=== PATIENT | male | born 1955 | race Caucasian/White ===

== ENCOUNTER 2024-05-01 12:09 | Emergency (ER) | payer MEDICARE, SELFPAY ==
[2024-05-01 12:34] VITALS: BP 188/110
--- NOTE | 2024-05-01 12:35 | ED.GENMED ---
ED Provider Triage
<Link Villagomez PA-C - Last Filed: 05/01/24 12:37>
-
Patient seen by provider in Triage?: Seen in Triage
Attestation: A medical screening examination has been initiated by a qualified medical provider. Based on the assessment performed at this time, it has been determined that an emergent medical condition may exist and the patient has been informed
that further medical evaluation and possible additional diagnostic testing may be needed.
HPI: 68-year-old male presenting to the emergency department for evaluation of right-sided lower back pain ongoing for about 3 to 4 weeks. Patient does note that he did have a mild fall at the beginning of these symptoms but is not sure if symptoms
are more mechanical. Does note that he has been urinating a little bit more frequently at night as well. No fevers or infectious symptoms. Patient is otherwise stable. Urinalysis and x-ray ordered.
GENERAL: Alert , in no apparent distress
EYE: No visual abnormalities.
NECK: Trachea midline
ENT: No visible abnormalities.
LUNGS: No acute respiratory distress
NEUROLOGICAL: Alert and oriented
SKIN: Skin intact. No visible changes.
MUSCULOSKELETAL: Moving extremities normally
PSYCH: Normal and appropriate interaction.
This is a medical evaluation conducted in person to initiate diagnostic evaluation and provide initial therapeutics. Please see further documentation by the treating clinician.
History of Present Illness
<Link Villagomez PA-C - Last Filed: 05/01/24 12:37>
General
Chief Complaint: Back Pain
Time Seen by Provider: 05/01/24 15:07
<Negro Smith MD - Last Filed: 05/01/24 15:43>
History of Present Illness
History of Present Illness:
Patient is a 68 old male with history of hypertension, prior history of lumbar stenosis status post surgical repair presenting to the emergency department for right lower back pain. Patient states that about 3 weeks ago he did have a mechanical
fall. He landed on the right side of his hip. A few days later he noticed that he had right lower back pain. It is constant dull pain that is worse with movement. He states that it is localized to the back. Does not radiate to his groin. No
new numbness tingling. No weakness. No fevers or chills. No history of spinal injections IV drug use, malignancy. No weight loss or night sweats. No saddle anesthesia, problems with urination or bowels. He does take Advil and naproxen which
does resolve the pain. He did speak to his primary care doctor over the phone today who recommended to come to the emergency department for further evaluation.
Past History
<Link Villagomez PA-C - Last Filed: 05/01/24 12:37>
Past History
ED Past Surgical History: Orthopedic (L. spine surgery)
Social History
Tobacco: Non-smoker
Personal: Single
Employment: Employed (judicial law clerk)
Phy Exam
<Negro Smith MD - Last Filed: 05/01/24 15:43>
Physical Exam
Physical Exam:
GENERAL: no acute distress
HEENT: atraumatic, extraocular muscles intact, no signs of entrapment, dentition intact, no other obvious trauma
NECK: no midline tenderness, normal range of motion, NEXUS criteria negative, no other obvious trauma
BACK: no midline tenderness, no other obvious trauma
CHEST: no tenderness, no flail segment, no subcutaneous emphysema, no other obvious trauma
LUNGS: clear to auscultation bilaterally
CARDIOVASCULAR: regular rate and rhythm
ABDOMEN: soft, non-tender, no masses, no other obvious trauma
PELVIS: stable, no obvious injury
EXTREMITIES: moving all extremities, distal pulses intact, no other obvious trauma
NEUROLOGIC: awake, alert x 3, no focal deficits
Course
<Link Villagomez PA-C - Last Filed: 05/01/24 12:37>
Orders/Labs/Results
Orders:
Orders
05/01/24 12:34
CR Lumbar Spine Comp Min 4 Vw* Urgent
Comment:
Reason For Exam: right sided lower back pain
05/01/24 12:56
Urinalysis Reflex To Culture Urgent
Date Specimen was Collected: 05/01/24
Time Specimen was Collected: 12:49
Vital Signs
Initial and Last Documented VS:
Initial Vital Signs
Temp Pulse Resp BP Pulse Ox
98.9 F 61 16 188/110 96
05/01/24 12:34 05/01/24 12:34 05/01/24 12:34 05/01/24 12:34 05/01/24 12:34
Last Documented Vital Signs
Temp Pulse Resp BP Pulse Ox
98.9 F 61 16 188/110 96
05/01/24 12:34 05/01/24 12:34 05/01/24 12:34 05/01/24 12:34 05/01/24 12:34
<Negro Smith MD - Last Filed: 05/01/24 15:43>
Orders/Labs/Results
Orders:
Orders
05/01/24 12:34
CR Lumbar Spine Comp Min 4 Vw* Urgent
Comment:
Reason For Exam: right sided lower back pain
05/01/24 12:56
Urinalysis Reflex To Culture Urgent
Date Specimen was Collected: 05/01/24
Time Specimen was Collected: 12:49
Vital Signs
Initial and Last Documented VS:
Initial Vital Signs
Temp Pulse Resp BP Pulse Ox
98.9 F 61 16 188/110 96
05/01/24 12:34 05/01/24 12:34 05/01/24 12:34 05/01/24 12:34 05/01/24 12:34
Last Documented Vital Signs
Temp Pulse Resp BP Pulse Ox
98.9 F 61 16 188/110 96
05/01/24 12:34 05/01/24 12:34 05/01/24 12:34 05/01/24 12:34 05/01/24 12:34
<Negro Smith MD - Last Filed: 05/01/24 15:43>
MDM/Problems Addressed
Differential Diagnosis Includes:
Patient is a 68-year-old male with history of hypertension, lumbar stenosis status postsurgical repair presenting to the emergency department right lower back pain in the setting of a recent fall. Vitals here are notable for an elevated blood
pressure and exam shows no midline tenderness with normal neuroexam. Does have very mild right lower tenderness superior to the hip. Most likely MSK pain. There are no red flags to suggest cauda equina osteomyelitis discitis or epidural abscess.
Given that there is no spinal tenderness less likely to be fracture. History and exam does not suggest aortic pathology or kidney stone or pancreatitis or appendicitis. He did have an x-ray completed prior to evaluation which showed no acute
abnormalities. Urine was negative. After shared decision making we did discuss the possibility of obtaining blood work and CT scan. However patient is following up with his PCP in a few days. We did discuss a better pain regimen. Will discharge
at this time with strict return precautions.
<Negro Smith MD - Last Filed: 05/01/24 15:43>
*Critical Care Note
Total Time (30-74mins, 75-104mins- exclusive of procedures): Not Applicable
ED Attending Note
<Link Villagomez PA-C - Last Filed: 05/01/24 12:37>
-
Portions of this chart may have been created with voice recognition software.� Occasional wrong word or��sound alike� substitutions may have occurred due to the inherent limitations of voice recognition software.
Discharge Plan
Departure
Patient Disposition: Home (Routine Discharge)
Date of Disposition: 05/01/24
Time of Disposition: 15:36
Patient with high blood pressure during this ER visit?: Yes
Discharge Problem:
Back pain
Instructions: Low Back Pain (DC)
Prescriptions:
No Action
hydrocodone-acetaminophen [Vicodin] 1 EACH tablet
1 ea PO Q6HPRN PRN (Reason: pain) Qty: 15 0RF
Referrals:
Srini Carter MD [Family Provider] -
Activity Restrictions/Additional Instructions:
We discussed pain medications:
You may take Tylenol (also known as Acetaminophen) for pain.
You may take 1000mg Acetaminophen (two extra-strength tablets) per dose, which should be taken every 6-8 hours, or three times a day.
If you have normal strength Tylenol, you can take 650mg (two normal strength tablets) every 4-6 hours.
Do not take more than 3,000mg (3 grams) of Acetaminophen per day.
Never take more than as directed on the bottle.
You may also take Ibuprofen (also known as Motrin or Advil). If taking with Tylenol, alternate and take between dosing.
You may take 400-800mg of Ibuprofen per dose, which should be taken every 6-8 hours.
Do not take more than 3200mg (3.2 grams) of Ibuprofen per day.
You may also benefit from using a Lidocaine Patch (also known as 'Salon Pas'), which is an over the counter pain patch.
Place it just over the site of pain, avoiding areas of skin damage, as per instructions on the patch.
Please see your primary care doctor soon to be reevaluated and to make sure that you are improving. We have included information about establishing care with a doctor if you do not have one.
We talked about your evaluation, diagnosis, and treatment in the Emergency Department today. You must see your primary doctor for recheck and followup care in order to evaluate your progress or any changes. Have your doctor recheck the test
results/information from the ED visit. As discussed, RETURN to the ED if you develop worsening/changing symptoms or have no improvement in symptoms after the treatments provided.
Interventions
Interventions:
*Risk Screen - Suicide Last Done: 05/01/24 12:34
*General Assessment Last Done: 05/01/24 12:34
*Neglect/Abuse Screening Last Done: 05/01/24 12:34
ED- Fall Risk Assessment Last Done: 05/01/24 13:13
*ED COVID-19 Vaccine History Last Done: 05/01/24 13:18
ED-Musculoskeletal Assessment Last Done: 05/01/24 13:17
Discharge Date and Time
Print Language: NAMIBIAN
[2024-05-01 13:18] VITALS: BMI 35.4
[2024-05-01 13:31] LABS: Urine Albumin Negative (Neg - Trace); Urine Bilirubin Negative (Negative); Urine Character Clear (Clear); Urine Color Yellow; Urine Glucose Negative (Negative); Urine Ketone Negative (Negative); Urine Leukocyte Negative (Negative); Urine Nitrite Negative (Negative); Urine Occult Blood Negative (Negative); Urine Specific Gravity 1.015 (<1.030); Urine Urobilinogen Negative (Neg - 1+); Urine pH 6.5 (5.0-9.0)
== END 2024-05-01 16:00 | disposition home or self-care (01) ==
LOC: EMR 12:09
PROVIDERS: Physician Assistant Medical; EMERGENCY PHYSICIAN Student in an Organized Health Care Education/Training Program; FAMILY PHYSICIAN Family Medicine
DX: M54.50 Low back pain, unspecified (principal); I10 Essential (primary) hypertension
CPT/HCPCS: 99283; 72110; 81003